=== PATIENT | male | born 1995 | race Caucasian/White ===

== ENCOUNTER 2016-09-16 17:34 | Inpatient (IN) | payer BC ==
[~2016-09-16] VITALS: Ht 177.8 cm; Wt 59.8 kg
--- NOTE | 2016-09-16 18:00 | EMERGENCY ROOM VISIT NOTE ---
History Report prepared by Jodie: Darrion Duggan Under the Supervision of: Dr. Nicho Mckeno D.O. First contact with patient: 17:42 Chief Complaint: MENTAL HEALTH EVALUATION Stated Complaint: SUICIDAL THOUGHTS History of Present Illness The patient is a 21 year old male who presents to the Emergency Room for a mental health evaluation. The patient presented to the emergency department with friends after he made suicidal ideation known to them. The patient's been having significant stressors recently. He recently found out that her friend who lives back home where he is from [place] was diagnosed with cancer. Over the last few months he's had very significant stressors including the of a family member and a girlfriend who broke up with him. The patient has been having significant depression and anxiety issues. He is not currently on any medications but he does see a therapist at [facility]. The patient has been having thoughts of hurting himself by taking prescription medications in an attempt overdose. The patient denies any recent illnesses. He denies having any fever headaches. He did not drink any alcohol today and he did not take any medicines in an attempt to harm himself at this time. The patient states his symptoms are very severe. He has never been admitted to the hospital for anything like this in the past. Source of History: patient, friend Position: other (Mental health) Symptom Intensity: severe Quality: other (Suicidal Comments) Associated Symptoms: No fevers, No headache Review of Systems See HPI for pertinent positives & negatives. A total of 10 systems reviewed and were otherwise negative. Past Medical & Surgical No pertinent secondary to case. Family History No pertinent secondary to case. Social History Smoking Status: Never Smoker Drug Use: none Housing Status: lives with roommate Occupation Status: [employer] student Current/Historical Medications No Active Prescriptions or Reported Meds Allergies Coded Allergies: No Known Allergies (Unverified , 09/16/16) Physical Exam Vital Signs Date Time Temp Pulse Resp B/P Pulse Ox O2 Delivery O2 Flow Rate FiO2 09/16/16 21:41 88 16 109/76 98 Room Air 09/16/16 17:39 36.6 85 18 129/83 97 Room Air Physical Exam GENERAL: Patient is awake and alert. He is very anxious appearing. EYES: The conjunctivae are clear. The pupils are round and reactive. EARS, NOSE, MOUTH AND THROAT: The nose is without any evidence of any deformity. Mucous membranes are moist tongue is midline NECK: The neck is nontender and supple. RESPIRATORY: Normal respiratory effort is noted there is no evidence of wheezing rhonchi or rales CARDIOVASCULAR: Regular rate and rhythm noted there no murmurs rubs or gallops normal S1 normal S2 GASTROINTESTINAL: The abdomen is soft. Bowel sounds are present in all quadrants. Abdomen is nontender MUSCULOSKELETAL/EXTREMITIES: There is no evidence of gross deformity full range of motion is noted in the hips and shoulders SKIN: There is no obvious evidence of any rash. There are no petechiae, pallor or cyanosis noted. NEUROLOGIC: Patient is awake alert and oriented x3 strength is symmetric patellar reflexes are 2+ bilaterally PSYCH: Patient is awake and alert. He is very depressed and his affect is flat. He does not make good eye contact. He continues to admit to having suicidal ideation with a plan to take medications attempt overdose. Medical Decision & Procedures Laboratory Results 09/16/16 18:15 Red Blood Count 5.08, Mean Corpuscular Volume 86.6, Mean Corpuscular Hemoglobin 32.3, Mean Corpuscular Hemoglobin Concent 37.3, Mean Platelet Volume 10.9, Neutrophils (%) (Auto) 52.9, Lymphocytes (%) (Auto) 34.8, Monocytes (%) (Auto) 9.0, Eosinophils (%) (Auto) 2.3, Basophils (%) (Auto) 1.0, Neutrophils # (Auto) 2.52, Lymphocytes # (Auto) 1.66, Monocytes # (Auto) 0.43, Eosinophils # (Auto) 0.11, Basophils # (Auto) 0.05 09/16/16 18:15 Test 09/16/16 00:00 09/16/16 18:15 Urine Color YELLOW Urine Appearance CLEAR (CLEAR) Urine pH 6.0 (4.5-7.5) Urine Specific [place] 1.018 (1.000-1.030) Urine Protein NEG (NEG) Urine Glucose (UA) NEG (NEG) Urine Ketones NEG (NEG) Urine Occult Blood NEG (NEG) Urine Nitrite NEG (NEG) Urine Bilirubin NEG (NEG) Urine Urobilinogen NEG (NEG) Urine Leukocyte Esterase NEG (NEG) Urine Opiates Screen NEG (NEG) Urine Methadone, Qualitative NEG (NEG) Urine Barbiturates NEG (NEG) Urine Phencyclidine (PCP) Level NEG (NEG) Ur Amphetamine/Methamphetamine NEG (NEG) MDMA (Ecstasy) Screen NEG (NEG) Urine Benzodiazepines Screen NEG (NEG) Urine Cocaine Metabolite NEG (NEG) Urine Marijuana (THC) NEG (NEG) White Blood Count 4.77 K/uL (4.8-10.8) Red Blood Count 5.08 M/uL (4.7-6.1) Hemoglobin 16.4 g/dL (14.0-18.0) Hematocrit 44.0 % (42-52) Mean Corpuscular Volume 86.6 fL (80-100) Mean Corpuscular Hemoglobin 32.3 pg (25-34) Mean Corpuscular Hemoglobin Concent 37.3 g/dl (32-36) Platelet Count 200 K/uL (130-400) Mean Platelet Volume 10.9 fL (7.4-10.4) Neutrophils (%) (Auto) 52.9 % Lymphocytes (%) (Auto) 34.8 % Monocytes (%) (Auto) 9.0 % Eosinophils (%) (Auto) 2.3 % Basophils (%) (Auto) 1.0 % Neutrophils # (Auto) 2.52 K/uL (1.4-6.5) Lymphocytes # (Auto) 1.66 K/uL (1.2-3.4) Monocytes # (Auto) 0.43 K/uL (0.11-0.59) Eosinophils # (Auto) 0.11 K/uL (0-0.5) Basophils # (Auto) 0.05 K/uL (0-0.2) RDW Standard Deviation 38.9 fL (36.4-46.3) RDW Coefficient of Variation 12.2 % (11.5-14.5) Immature Granulocyte % (Auto) 0.0 % Immature Granulocyte # (Auto) 0.00 K/uL (0.00-0.02) Anion Gap 12.0 mmol/L (3-11) Est Creatinine Clear Calc Drug Dose 101.7 ml/min Estimated GFR () 128.1 Estimated GFR (Non- 110.5 BUN/Creatinine Ratio 16.5 (10-20) Calcium Level 9.3 mg/dl (8.5-10.1) Total Bilirubin 0.7 mg/dl (0.2-1) Direct Bilirubin 0.2 mg/dl (0-0.2) Aspartate Amino Transf (AST/SGOT) 30 U/L (15-37) Alanine Aminotransferase (ALT/SGPT) 49 U/L (12-78) Alkaline Phosphatase 87 U/L (45-117) Total Protein 7.7 gm/dl (6.4-8.2) Albumin 4.7 gm/dl (3.4-5.0) Globulin 3.0 gm/dl (2.5-4.0) Albumin/Globulin Ratio 1.6 (0.9-2) Thyroid Stimulating Hormone (TSH) 1.910 uIu/ml (0.300-4.500) Ethyl Alcohol mg/dL < 3.0 mg/dl (0-3) Laboratory results per my review. ED Course 1750: The patient was evaluated in room A6. A complete history and physical examination were performed. 2221: [address] [place] [address] will accept the patient for transfer. Medical Decision Prior records/ancillary studies reviewed. Triage Nursing notes reviewed. The patient's history was concerning for possible psychiatric disturbance. Differential diagnosis: Etiologies such as mood disorder, infection, hypoglycemia, electrolyte abnormalities, cardiac sources, intracerebral event, toxicologic, neurologic, as well as others were entertained. The patient is a 21-year-old male who presented to the emergency department for an evaluation of mental health problem is. The patient's been having problems recently especially with anxiety and depression. His symptoms began to escalate and he is now starting to have suicidal ideation. The patient was medically cleared in the emergency department. I discussed the patient's laboratory studies with him. He was evaluated by the [facility] emergency Department nurse outreach case manager and then evaluated by the delegate from [address] [place] [address]. He was felt to be a good candidate for inpatient management. The patient was agreeable to this plan. Impression Primary Impression: Depression Additional Impressions: Suicidal ideation Acute anxiety Scribe Attestation The scribe's documentation has been prepared under my direction and personally reviewed by me in its entirety. I confirm that the note above accurately reflects all work, treatment, procedures, and medical decision making performed by me. Departure Information Dispostion [facility] ([address] [place] [address]) Prescriptions No Active Prescriptions or Reported Meds Referrals [facility] (PCP) Forms HOME CARE DOCUMENTATION FORM, IMPORTANT VISIT INFORMATION Patient Instructions My [facility] Problem Qualifiers Primary Impression: Depression Depression Type: unspecified Qualified Codes: F32.9 - Major depressive disorder, single episode, unspecified
[2016-09-16 18:20] LABS: URINE APPEARANCE CLEAR (CLEAR); URINE BILIRUBIN NEG (NEG); URINE COLOR YELLOW; URINE NITRITE NEG (NEG); URINE SPECIFIC GRAVITY 1.018 (1.000-1.030); UROBILINOGEN NEG (NEG)
[2016-09-16 18:29] LABS: BASO ABS # 0.05 K/uL (0-0.2); COMPLETE YES; EOS % 2.3 %; LYMPH % 34.8 %; LYMPH ABS # 1.66 K/uL (1.2-3.4); MEAN CELL VOLUME 86.6 fL (80-100); MEAN CORPUSCULAR HEMOGLOBIN 32.3 pg (25-34); MEAN CORPUSCULAR HGB CONC 37.3 g/dl (32-36); MEAN PLATELET VOLUME 10.9 fL (7.4-10.4); NEUT % 52.9 %; PLATELET COUNT 200 K/uL (130-400); RED BLOOD COUNT 5.08 M/uL (4.7-6.1); WHITE BLOOD COUNT 4.77 K/uL (4.8-10.8)
[2016-09-16 18:30] LABS: MANUAL MICROSCOPIC REQUIRED? NO; REVIEW REQ? NO
[2016-09-16 18:45] LABS: BENZODIAZEPINE, URINE NEG (NEG); COCAINE,URINE NEG (NEG); PHENCYCLIDINE, URINE NEG (NEG)
[2016-09-16 18:47] LABS: BUN/CREATININE RATIO 16.5 (10-20); CALCIUM 9.3 mg/dl (8.5-10.1); CREATININE 0.98 mg/dl (0.60-1.40); POTASSIUM 3.9 mmol/L (3.5-5.1)
[2016-09-16 18:56] LABS: ALB/GLOB RATIO 1.6 (0.9-2); THYROID STIMULATING HORMONE 1.91 uIu/ml (0.300-4.500)
[2016-09-16] MEDS ORDERED: NURSING VERBAL MED ORDER ONE (22:45)
[2016-09-16] MEDS ORDERED: MAGNESIUM HYDROXIDE SUSP 30 ML UDC PO PRN (23:00)
[2016-09-16] MEDS ORDERED: SODIUM CHLORIDE 0.65% NA SOLN 45 ML (OCEAN) PRN (23:00)
[2016-09-16] MEDS ORDERED: ALUMINUM/MAGNESIUM SUSP 30 ML UDC PO PRN (23:00)
[2016-09-16] MEDS ORDERED: hydrOXYzine HCL 25 MG TAB PO PRN ×2 (23:00)
[2016-09-16] MEDS ORDERED: BISMUTH SUBSALICYLATE PER ML OMNICELL CHARGE PO PRN (23:00)
[2016-09-16] MEDS ORDERED: ACETAMINOPHEN 325 MG TAB PO PRN (23:00)
[2016-09-16 23:30] VITALS: O2SAT 98
[2016-09-17 00:18] VITALS: BP_SYST 113; BP_SYST 129; BP_DIAS 76; BP_DIAS 79; PULSE 81; TEMP 36.9; Ht 177.8 cm; Wt 59.8 kg
[2016-09-17 07:04] VITALS: BP_SYST 109; BP_SYST 99; BP_DIAS 63; BP_DIAS 65; PULSE 108; PULSE 85; TEMP 36.5
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
[2016-09-18 06:57] VITALS: BP_SYST 104; BP_SYST 116; BP_DIAS 67; BP_DIAS 74; PULSE 46; PULSE 91; TEMP 36.5
--- NOTE | 2016-09-18 12:34 | Psychiatric Progress Notes ---
Progress Note Date of Service Sep 18, 2016. Interval History José Luis Crouch is a 21-year-old [employer] student who is admitted to our unit voluntarily with severe depression, suicidal ideation in the context of multiple stressors. Chief Complaint "okay". Subjective Patient was seen & assessed interval progress reviewed with nursing. Staff report he is going to groups, and was assisted in contacting [employer]. He says his mood is "ok," and thinks he feels better because he has a plan to work with someone at [employer]. He says he doesn't really need mental health treatment, because his only problem is school, and "if I can fix that, everything will be fine." He does not want to take antidepressant medication or follow up with mental health providers. He says he had suicidal thoughts because he felt he "was losing control of my life," and now feels like "I've taken control back over." He is hoping to either defer some classes or take a medical withdrawal and return home to work for the semester, and says he will "work all that out in the meetings." He is also hoping to be able to retroactively withdrawal from a previous semester based on medical reasons, and feels more hopeful after talking to [employer]. He talks at length about his views on treatment of mental illness, saying that because he has stressors that caused his depressive and anxiety symptoms, he doesn't need treatment, because he'll just fix his stressors. He doesn't think therapy was helpful, saying he went to 4 sessions and then quit because it wasn't worth it, he was concerned about the cost, and doesn't think he needed it. He has not worked on his safety plan, "no one really told me about that, no one showed me through the book." Sleep Information Total Hours of Sleep: 6.00 Meal Information Percent of Breakfast Consumed: 100 Percent of Lunch Consumed: 100 Percent of Dinner Consumed: 100 Impression IMPRESSION: A 21-year-old [employer] student admitted with severe depression and suicidality. His primary stress is that of school and the impact of his poor grades moving forward. He has made attempts to have grades deferred or to consider a retroactive withdrawal but there has been no resolution. He has also missed ROT. 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 He wants to see his depression as a direct result of his stress, and thinks that if he can "fix" his stressors with school, he will no longer be depressed or anxious. He is trying to set up meetings with his advisor and the office of student affairs. We are recommending a meeting with his parents to discuss the stressors, although he wants to avoid this, and says he will tell them about his hospitalization after he is discharged, not wanting them to be worried. At this time, the patient requires inpatient mental health treatment due to the severity of his condition and the risk for self-harm if discharged. DIAGNOSIS: Major depressive disorder, single, severe without psychotic features. Plan (1) Depression 09/17 - The patient is unwilling to consider medications until the impact to [facility] is clarified. - Q. 15 minute checks for safety. - Encourage participation in group and individual counseling. - Coordinate with the office of student affairs. - Contact [facility] for clarification about use of medications. - Family meeting. - The patient will need psychiatric aftercare, has been seeing Edwar Garza for therapy. - Assist the patient to learn and utilize additional healthy coping strategies. 09/18 - Patient remains unwilling for medications and ambivalent about therapy. - Encouraged to have a family meeting. Has not yet talked to parents and doesn't want to, although recognizes that they will find out through the insurance company. (2) Suicidal ideation - safety checks - attend groups - work on safety plan and coping skills (3) Acute anxiety - offer hydroxyzine as needed Discharge / Aftercare Planning Psychiatrist: Name: milagros Therapist: Name: Edwar Garza at [facility] Plant General Manager: Name: milagros Visit Code E&M Code: 89449 Risk Factors Assessment Male: Yes : Yes /single/: Yes Access to guns: No Health problems: No Mental Health Diagnoses: Yes Substance use disorders: No Previous attempt: No Previous psychiatric stay: No Protective Factors Assessment : No Responsible for young children: No Employed: No Good rapport with provider: No Data Vital Signs Last 24 Hrs: Date Time Temp Pulse Resp B/P Pulse Ox O2 Delivery O2 Flow Rate FiO2 09/18/16 06:57 36.5 46 16 116/74 91 104/67 Problem Qualifiers (1) Depression: Depression Type: unspecified Qualified Codes: F32.9 - Major depressive disorder, single episode, unspecified
[2016-09-19 07:00] VITALS: BP_SYST 106; BP_SYST 95; BP_DIAS 59; BP_DIAS 63; PULSE 54; PULSE 93; TEMP 36.4
--- NOTE | 2016-09-19 13:07 | Psychiatric Progress Notes ---
Progress Note Date of Service Sep 19, 2016. Interval History José Luis Crouch is a 21-year-old [facility] student who is admitted to our unit voluntarily with severe depression, suicidal ideation in the context of multiple stressors. Chief Complaint "Fine.". Subjective Patient was seen & assessed interval progress reviewed with Treatment Team. The patient presents as angry and rigid, not willing to accept our recommendations to contact his parents or consider medications. he says that he is feeling worse being here, and wants to be able to discharge so that he can deal with his school issues which will require a meeting with Office of Student Affairs. He does not want to have a phone meeting with his parents to discuss the stressful relationship with his father, and says that if they knew he was in the hospital, they would drive right up which he doesn't want. He resists the idea of fortifying his safety plan, saying that he already has a safety plan (threw away the pills, and called his peers for help) and says he wouldn't be here if he didn't have a successful safety plan. He does not see that his serious suicidal ideations present a problem that needs to be mediated , and does not relent even when we discuss the fact that he has not allowed us to mediate any risk factors since admission. He ultimately agrees to have Captain Ca check on him frequently and a roommate to increase his safety network. He is requesting discharge as soon as possible. Review of Systems Constitutional: No chills, No fatigue, No fever, No problem reported, No sweats , No weakness, No weight loss ENT: No dental problems, No hearing loss, No nasal symptoms, No problem reported, No sore throat, No tinnitus, No trouble swallowing, No unusual epistaxis Respiratory: No cough, No dyspnea at rest, No dyspnea on exertion, No hemoptysis, No problem reported, No shortness of breath, No sputum, No wheezing Cardiovascular: No PND, No chest pain, No claudication, No edema, No orthopnea , No palpitations, No problem reported Abdomen: No GI bleeding, No constipation, No diarrhea, No nausea, No pain, No problem reported, No vomiting Musculoskeletal: No calf pain, No joint pain, No muscle pain, No problem reported, No swelling Neurologic: No balance problems, No memory loss, No numbness/tingling, No paralysis, No problem reported, No vertigo, No weakness Psychiatric: + depression symptoms Integumentary: + problem reported (rigid thinking) Sleep Information Total Hours of Sleep: 6.50 Meal Information Percent of Breakfast Consumed: 75 Percent of Lunch Consumed: 100 Percent of Dinner Consumed: 100 Mental Status Exam During interview pt is: alert and oriented, uncooperative Appearance: appropriately dressed, appropriately groomed Eye contact is: good Motor behavior is: steady gait & station, no abnormal motor movements Speech: normal in rate, rhythm & volume Affect: flat, angry Mood is: angry Thought process: clear, coherent Thought content: preoccupation (with discharge) Suicidal thought are: denied Homicidal thoughts are: denied Hallucinations: denies auditory, denies visual Intelligence estimated to be: average Insight: limited Judgement: limited Impression The patient continues to refuse antidepressants worrying that they will somehow show up on a report and prevent him from obtaining certain jobs in the . He refuses to be in contact with his parents, and has not resolved his primary stressor, that of his school and how to handle recent semesters. I have asked the geriatric social work professor to be in contact with Captain Ca and a roommate to enlist their support to check on the patient and broaden his support network. If this can be established, we could consider discharge. Plan (1) Depression 09/17 - The patient is unwilling to consider medications until the impact to [facility] is clarified. - Q. 15 minute checks for safety. - Encourage participation in group and individual counseling. - Coordinate with the office of student affairs. - Contact [facility] for clarification about use of medications. - Family meeting. - The patient will need psychiatric aftercare, has been seeing Edwar Garza for therapy. - Assist the patient to learn and utilize additional healthy coping strategies. 09/18 - Patient remains unwilling for medications and ambivalent about therapy. - Encouraged to have a family meeting. Has not yet talked to parents and doesn't want to, although recognizes that they will find out through the insurance company. (2) Suicidal ideation - safety checks - attend groups - work on safety plan and coping skills 09/19 - Contact Captain Ca and roommate to enlist their support post discharge - Patient continues to refuse medications. (3) Acute anxiety - offer hydroxyzine as needed Discharge / Aftercare Planning Psychiatrist: Name: milagros Therapist: Name: Edwar Garza at [facility] [employer] Coreroom: Name: milagros Visit Code E&M Code: 71814 Risk Factors Assessment Male: Yes : Yes /single/: Yes Access to guns: No Health problems: No Mental Health Diagnoses: Yes Substance use disorders: No Previous attempt: No Previous psychiatric stay: No Protective Factors Assessment : No Responsible for young children: No Employed: No Good rapport with provider: No Data Vital Signs Last 24 Hrs: Date Time Temp Pulse Resp B/P Pulse Ox O2 Delivery O2 Flow Rate FiO2 09/19/16 07:00 36.4 54 16 106/63 93 95/59 Meds Administered Last 24 Hrs: Current Inpatient Medications Medications (Trade) Dose Ordered Sig/Grant Route Start Time Stop Time Status Last Admin Dose Admin Acetaminophen (Tylenol Tab) 650 mg Q4H PRN PO 09/16/16 23:00 10/16/16 22:59 Al Hydroxide/Mg Hydroxide (Maalox Susp) 30 ml Q4H PRN PO 09/16/16 23:00 10/16/16 22:59 Bismuth Subsalicylate (Kaopectate Liqd) 15 ml DAILY PRN PO 09/16/16 23:00 10/16/16 22:59 Magnesium Hydroxide (Milk Of Magnesia Susp) 30 ml DAILY PRN PO 09/16/16 23:00 10/16/16 22:59 Sodium Chloride ([place] Nasal [place]) PRN PRN NA 09/16/16 23:00 10/16/16 22:59 Hydroxyzine HCl (Vistaril Tab) 50 mg HSZ PRN PO 09/16/16 23:00 10/16/16 22:59 Hydroxyzine HCl (Vistaril Tab) 25 mg Q4H PRN PO 09/16/16 23:00 10/16/16 22:59 Lab Results Last 24 Hrs: 09/16/16 18:15 Red Blood Count 5.08, Mean Corpuscular Volume 86.6, Mean Corpuscular Hemoglobin 32.3, Mean Corpuscular Hemoglobin Concent 37.3, Mean Platelet Volume 10.9, Neutrophils (%) (Auto) 52.9, Lymphocytes (%) (Auto) 34.8, Monocytes (%) (Auto) 9.0, Eosinophils (%) (Auto) 2.3, Basophils (%) (Auto) 1.0, Neutrophils # (Auto) 2.52, Lymphocytes # (Auto) 1.66, Monocytes # (Auto) 0.43, Eosinophils # (Auto) 0.11, Basophils # (Auto) 0.05 09/16/16 18:15 Test 09/16/16 00:00 09/16/16 18:15 Urine Color YELLOW Urine Appearance CLEAR (CLEAR) Urine pH 6.0 (4.5-7.5) Urine Specific [place] 1.018 (1.000-1.030) Urine Protein NEG (NEG) Urine Glucose (UA) NEG (NEG) Urine Ketones NEG (NEG) Urine Occult Blood NEG (NEG) Urine Nitrite NEG (NEG) Urine Bilirubin NEG (NEG) Urine Urobilinogen NEG (NEG) Urine Leukocyte Esterase NEG (NEG) Urine Opiates Screen NEG (NEG) Urine Methadone, Qualitative NEG (NEG) Urine Barbiturates NEG (NEG) Urine Phencyclidine (PCP) Level NEG (NEG) Ur Amphetamine/Methamphetamine NEG (NEG) MDMA (Ecstasy) Screen NEG (NEG) Urine Benzodiazepines Screen NEG (NEG) Urine Cocaine Metabolite NEG (NEG) Urine Marijuana (THC) NEG (NEG) White Blood Count 4.77 K/uL (4.8-10.8) Red Blood Count 5.08 M/uL (4.7-6.1) Hemoglobin 16.4 g/dL (14.0-18.0) Hematocrit 44.0 % (42-52) Mean Corpuscular Volume 86.6 fL (80-100) Mean Corpuscular Hemoglobin 32.3 pg (25-34) Mean Corpuscular Hemoglobin Concent 37.3 g/dl (32-36) Platelet Count 200 K/uL (130-400) Mean Platelet Volume 10.9 fL (7.4-10.4) Neutrophils (%) (Auto) 52.9 % Lymphocytes (%) (Auto) 34.8 % Monocytes (%) (Auto) 9.0 % Eosinophils (%) (Auto) 2.3 % Basophils (%) (Auto) 1.0 % Neutrophils # (Auto) 2.52 K/uL (1.4-6.5) Lymphocytes # (Auto) 1.66 K/uL (1.2-3.4) Monocytes # (Auto) 0.43 K/uL (0.11-0.59) Eosinophils # (Auto) 0.11 K/uL (0-0.5) Basophils # (Auto) 0.05 K/uL (0-0.2) RDW Standard Deviation 38.9 fL (36.4-46.3) RDW Coefficient of Variation 12.2 % (11.5-14.5) Immature Granulocyte % (Auto) 0.0 % Immature Granulocyte # (Auto) 0.00 K/uL (0.00-0.02) Anion Gap 12.0 mmol/L (3-11) Est Creatinine Clear Calc Drug Dose 101.7 ml/min Estimated GFR () 128.1 Estimated GFR (Non- 110.5 BUN/Creatinine Ratio 16.5 (10-20) Calcium Level 9.3 mg/dl (8.5-10.1) Total Bilirubin 0.7 mg/dl (0.2-1) Direct Bilirubin 0.2 mg/dl (0-0.2) Aspartate Amino Transf (AST/SGOT) 30 U/L (15-37) Alanine Aminotransferase (ALT/SGPT) 49 U/L (12-78) Alkaline Phosphatase 87 U/L (45-117) Total Protein 7.7 gm/dl (6.4-8.2) Albumin 4.7 gm/dl (3.4-5.0) Globulin 3.0 gm/dl (2.5-4.0) Albumin/Globulin Ratio 1.6 (0.9-2) Thyroid Stimulating Hormone (TSH) 1.910 uIu/ml (0.300-4.500) Ethyl Alcohol mg/dL < 3.0 mg/dl (0-3) Problem Qualifiers (1) Depression: Depression Type: unspecified Qualified Codes: F32.9 - Major depressive disorder, single episode, unspecified
[2016-09-20 06:58] VITALS: BP_SYST 102; BP_SYST 122; BP_DIAS 65; BP_DIAS 70; PULSE 64; PULSE 96; TEMP 36.5
--- NOTE | 2016-09-20 13:27 | Psychiatric Progress Notes ---
Progress Note Date of Service Sep 20, 2016. 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 He wants to be discharged so that he can drive down to [place] to meet with his parents and then plan is for his mother to come back her for the next week to help support patient. Patient has resisted having family meeting with his parents and is fearful as to how they would react to him being in hospital. Patient voiced sense of urgency with needing to return to [place] to have his car registration completed. Patient agreed for staff to contact parents with patient present and parents plan to drive up to [place] later today. Mother reported that she completed car registration and that this is in the mail at this time and patient does not need to return [place] to get this done. Chief Complaint "My mood is okay. I just need to figure out what is happening with school". Subjective Patient was seen & assessed interval progress reviewed with nursing staff. Patient reports that his mood is okay. He wants to be discharged so that he can drive down to [place] to meet with his parents and then plan is for his mother to come back her for the next week to help support patient. Patient has resisted having family meeting with his parents and is fearful as to how they would react to him being in hospital. Patient voiced sense of urgency with needing to return to [place] to have his car registration completed. Patient agreed for staff to contact parents with patient present and parents plan to drive up to [place] later today. Mother reported that she completed car registration and that this is in the mail at this time and patient does not need to return [place] to get this done. Patient continues to decline antidepressant medication. Denies any thoughts to harm self or others. Review of Systems Psych: denies symptoms other than stated above Constitutional: Slept 3.75 hours last night. Decreased energy level. Appetite good. Cardiovascular: denied GI: denied Neurologic: denied Remainder of 10 body systems also reviewed and denied other than noted above. Sleep Information Total Hours of Sleep: 3.75 Meal Information Percent of Breakfast Consumed: 100 Percent of Lunch Consumed: 100 Percent of Dinner Consumed: 100 Mental Status Exam During interview pt is: alert and oriented, uncooperative Appearance: appropriately dressed, appropriately groomed Eye contact is: good Motor behavior is: steady gait & station, no abnormal motor movements Speech: normal in rate, rhythm & volume Affect: flat, angry Mood is: angry Thought process: clear, coherent Thought content: preoccupation (with discharge) Suicidal thought are: denied Homicidal thoughts are: denied Hallucinations: denies auditory, denies visual Intelligence estimated to be: average Insight: limited Judgement: limited Impression The patient continues to refuse antidepressants worrying that they will somehow show up on a report and prevent him from obtaining certain jobs in the . He refuses to be in contact with his parents, and has not resolved his primary stressor, that of his school and how to handle recent semesters. I have asked the social services specialist to be in contact with Captain Lopezos and a roommate to enlist their support to check on the patient and broaden his support network. If this can be established, we could consider discharge. Plan (1) Depression 09/17 - The patient is unwilling to consider medications until the impact to [facility] is clarified. - Q. 15 minute checks for safety. - Encourage participation in group and individual counseling. - Coordinate with the office of student affairs. - Contact [facility] for clarification about use of medications. - Family meeting. - The patient will need psychiatric aftercare, has been seeing Edwar Garza for therapy. - Assist the patient to learn and utilize additional healthy coping strategies. 09/18 - Patient remains unwilling for medications and ambivalent about therapy. - Encouraged to have a family meeting. Has not yet talked to parents and doesn't want to, although recognizes that they will find out through the insurance company. 09/20 -He wants to be discharged so that he can drive down to [place] to meet with his parents and then plan is for his mother to come back her for the next week to help support patient. Patient has resisted having family meeting with his parents and is fearful as to how they would react to him being in hospital. Patient voiced sense of urgency with needing to return to [place] to have his car registration completed. Patient agreed for staff to contact parents with patient present and parents plan to drive up to [place] later today. Mother reported that she completed car registration and that this is in the mail at this time and patient does not need to return [place] to get this done. (2) Suicidal ideation - safety checks - attend groups - work on safety plan and coping skills 09/19 - Contact Captain Ca and roommate to enlist their support post discharge - Patient continues to refuse medications. 09/20 -Patient denies suicidal thoughts but due to patient's agitation in reaction to plan for parents to drive up from [place] later today and mother to spend week with patient for support as opposed to patient driving himself down to [place] and then returning back up here to [place] to meet with University Officials plan was reviewed with patient to reassess his level of agitation and impulsiveness tomorrow and then consider discharge if stabilized. (3) Acute anxiety - offer hydroxyzine as needed Discharge / Aftercare Planning Primary Care Physician: Name: [facility] Phone Number: Appointment Notes: as needed Psychiatrist: Name: milagros Therapist: Name: Edwar Garza at [facility] Phone Number: [phone] Date of Appointment: Sep 29, 2016 Time of Appointment: 9:00 Hog Dropper: Name: milagros Other: Name of Appointment #1: [facility] Phone Number: Date of Appointment #1: Sep 26, 2016 Time of Appointment #1: 11:00 Appointment #1 Notes: [address] [place] [address] Visit Code E&M Code: 37439 Risk Factors Assessment Male: Yes : Yes /single/: Yes Access to guns: No Health problems: No Mental Health Diagnoses: Yes Substance use disorders: No Previous attempt: No Previous psychiatric stay: No Protective Factors Assessment : No Responsible for young children: No Employed: No Good rapport with provider: No Data Vital Signs Last 24 Hrs: Date Time Temp Pulse Resp B/P Pulse Ox O2 Delivery O2 Flow Rate FiO2 09/20/16 06:58 36.5 64 16 102/65 96 122/70 Problem Qualifiers (1) Depression: Depression Type: unspecified Qualified Codes: F32.9 - Major depressive disorder, single episode, unspecified
[2016-09-21 06:59] VITALS: BP_SYST 107; BP_SYST 114; BP_DIAS 66; BP_DIAS 78; PULSE 72; PULSE 82; TEMP 36.3
--- NOTE | 2016-09-21 09:05 | Discharge Instructions ---
Discharge Information Report Includes Report will include the: Discharge Instructions & Summary Admission Admission Date / Time: Sep 16, 2016 at 22:36 Reason for Admission: Depressive Disorder Nos Discharge Discharge Diagnosis / Problem: Major depressive disorder, moderate, single episode Condition at Discharge: Good Discharge Goals Goal(s): Improve function, Specific goals (No longer suicidal) Activity Recommendations Activity Limitations: per Instructions/Follow-up section Lifting Limitations: none Exercise/Sports Limitations: none May Resume Sexual Activity: when tolerated Shower/Bathe: no limitations Driving or Machine Use: no limitations . Instructions / Follow-Up Instructions / Follow-Up . SPECIAL CARE INSTRUCTIONS: 1. Follow through with your scheduled aftercare appointments. If unable to keep an appointment, please call to reschedule. 2. Take your medication only as prescribed. Medication should not be changed or stopped without the approval of your doctor. In the event of worsening symptoms or concerns about side effects, contact your doctor immediately. 3. Utilize new healthy coping skills, anger management skills, and stress management skills learned during your hospitalization. Journal feelings and process them with a support person. Identify stressors or situations that may result in relapse, deterioration or inappropriate behaviors and develop a plan to deal with those issues. 4. If your coping skills are ineffective and you are in crisis, contact your outpatient providers for direction. If unable to reach your providers, please call the CAN HELP LINE AT or go to the closest Emergency Room. 5. Avoid alcohol and un-prescribed drugs. 6. You have been provided with the Mental Health Advance Directives Pamphlet for your review. AFTERCARE APPOINTMENTS: * Please call your insurance company prior to your scheduled appointment to confirm your aftercare providers are covered. Take your insurance information to your appointments. . Discharge / Aftercare Planning Primary Care Physician: Name: [facility] [employer] Phone Number: Appointment Notes: as needed Psychiatrist: Name: milagros Therapist: Name Of Therapist: Edwar Garza at [facility] Phone Number: [phone] Date of Appointment: Sep 29, 2016 Time of Appointment: 9:00 Forest Officer: Name: milagros Other: Name of Appointment #1: [facility] Student Bea Phone Number: [phone] Date of Appointment #1: Sep 26, 2016 Time of Appointment #1: 11:00 Appointment #1 Notes: Yadira Conklin . Follow-Up Care Plan for Follow-Up Care: Patient will follow up with his outpatient therapist Edwar Garza at [facility] on September 29, 2016 at 9:00AM. Current Hospital Diet Patient's current hospital diet: Regular Diet Discharge Diet Recommended Diet: Regular Diet Procedures Procedures Performed: No Pending Studies Pending Studies at Discharge: No School Instructions Additional Instructions: Patient to meet with Office of Student Affairs at [facility] to review plans to return to school. Medical Emergencies . Who to Call and When: Medical Emergencies: For questions or emergencies related to your hospital stay, please contact the Inpatient Behavioral Health Unit at [phone]. A puff ironer is on-call 16/03 for the Behavioral Health Unit for emergencies At any time you feel your situation is an emergency, you may also call 911 immediately. . Non-Emergent Contact Non-Emergency issues call your: Therapist (Edwar Garza at [phone]) Advance Directives Existing Advance Directive: No Do You Have an Existing Mental: No Existing Living Will: No Existing Power of Building Service Worker: No Advance Directives Info Given: To Pt/S.O. Discharge Summary Hospital Course (1) Depression 09/17 - The patient is unwilling to consider medications until the impact to [facility] is clarified. - Q. 15 minute checks for safety. - Encourage participation in group and individual counseling. - Coordinate with the office of student affairs. - Contact [facility] for clarification about use of medications. - Family meeting. - The patient will need psychiatric aftercare, has been seeing Edwar Garza for therapy. - Assist the patient to learn and utilize additional healthy coping strategies. 09/18 - Patient remains unwilling for medications and ambivalent about therapy. - Encouraged to have a family meeting. Has not yet talked to parents and doesn't want to, although recognizes that they will find out through the insurance company. 09/20 -He wants to be discharged so that he can drive down to [place] to meet with his parents and then plan is for his mother to come back her for the next week to help support patient. Patient has resisted having family meeting with his parents and is fearful as to how they would react to him being in hospital. Patient voiced sense of urgency with needing to return to [place] to have his car registration completed. Patient agreed for staff to contact parents with patient present and parents plan to drive up to [place] later today. Mother reported that she completed car registration and that this is in the mail at this time and patient does not need to return [place] to get this done. (2) Suicidal ideation - safety checks - attend groups - work on safety plan and coping skills 09/19 - Contact Captain Ca and roommate to enlist their support post discharge - Patient continues to refuse medications. 09/20 -Patient denies suicidal thoughts but due to patient's agitation in reaction to plan for parents to drive up from [place] later today and mother to spend week with patient for support as opposed to patient driving himself down to [place] and then returning back up here to [place] to meet with [employer] Officials plan was reviewed with patient to reassess his level of agitation and impulsiveness tomorrow and then consider discharge if stabilized. (3) Acute anxiety - offer hydroxyzine as needed Risk Factors Assessment Male: Yes : Yes /single/: Yes Access to guns: No Health problems: No Mental Health Diagnoses: Yes Substance use disorders: No Previous attempt: No Previous psychiatric stay: No Protective Factors Assessment : No Responsible for young children: No Employed: No Good rapport with provider: No Day of Discharge Assessment Patient seen and assessed. Mood significantly improved. No longer feeling depressed. Anxiously looking forward to discharge and hopeful about future. Anxious about meeting with his parents as well as [facility] Office of Student Affairs and [facility] program. Denies any suicidal or homicidal thoughts. Expresses willingness to continue follow up with Edwar Garza for outpatient psychotherapy. Continues to decline antidepressant medications. His mother and sister arrived last evening from [place] and will be present to support patient upon discharge with plan for mother to be off work for a week to help support patient. Laboratory Refer to printed laboratory reports Total Time Total Time Spent (min): Less than 30 minutes Total Time Included: examination of the patient, discharge planning Tobacco Cessation at Discharge FDA approved Prescription: non-smoker Copies To Additional Copies To: Inverted [employer] Problem Qualifiers (1) Depression: Depression Type: unspecified Qualified Codes: F32.9 - Major depressive disorder, single episode, unspecified
== END 2016-09-21 09:50 | disposition home or self-care (01) | DRG 885 ==
LOC: C.EDB 17:36 → C.MHU 22:36
PROVIDERS: ADMIT Psychiatry & Neurology Psychiatry; ATTEND Psychiatry & Neurology Psychiatry
DX: F32.2 Major depressive disorder, single episode, severe without psychotic features (principal); R45.851 Suicidal ideations; F41.9 Anxiety disorder, unspecified; Z55.8 Other problems related to education and literacy; Z63.8 Other specified problems related to primary support group; Z62.820 Parent-biological child conflict; Z91.14 Patient's other noncompliance with medication regimen